=== PATIENT | female | born 1950 ===

== ENCOUNTER 2018-07-26 15:00 | Inpatient (IN) | payer MEDICARE ==
--- NOTE | 2018-07-17 17:00 | HP ---
HISTORY AND PHYSICAL: DATE OF ADMISSION/SURGERY: 07/26/18 DATE OF OFFICE VISIT: 07/13/18 SURGEON: Nina Wu MD* (dictated by CHERI Albert). PROCEDURE: Right total hip arthroplasty. CHIEF COMPLAINT: Right hip pain. HISTORY OF PRESENT ILLNESS: Ms. Singh is a 68-year-old female with continued complaints of right hip pain. She has failed conservative treatment and elected to proceed with a right total hip arthroplasty. PAST MEDICAL HISTORY: Thyroid disease, hypertension, and high cholesterol. PAST SURGICAL HISTORY: ERCP, cataract removal, and tonsillectomy. CURRENT MEDICATIONS: 1. Aspirin 81 mg a day. 2. L-thyroxine 25 mcg a day. 3. Losartan potassium 100 mg a day. 4. Tramadol 50 mg as needed. 5. Wellbutrin 100 mg a day. ALLERGIES: No known drug allergies. FAMILY HISTORY: Coronary artery disease, diabetes, cancer, and stroke. SOCIAL HISTORY: She is a 68-year-old female. She lives with her . She does not smoke, use drugs or alcohol. REVIEW OF SYSTEMS: A complete 14-point review of systems was reviewed with the patient. It was positive for thyroid disease. She denies history of DVT, PE, hepatitis, HIV, or anesthesia problems. PHYSICAL EXAMINATION GENERAL: She is well developed, well nourished, in no acute distress. VITAL SIGNS: She stands 63 inches tall, weighs 252 pounds. Her blood pressure is 150/90, her heart rate is 86. HEENT: Normocephalic, atraumatic. NECK: Supple. No palpable lymph nodes. PULMONARY: The lungs are clear to auscultation bilaterally. CARDIO: Regular rate and rhythm. Strong S1, S2. ABDOMEN: Soft, nontender, nondistended. NEUROLOGICAL: She is alert and oriented x3. MUSCULOSKELETAL: Right lower extremity: The skin is intact. There are no open wounds or abrasions. She has decreased range of motion of the right hip. She walks with an antalgic-type gait. She is able to dorsiflex and plantarflex and has a 2+ dorsalis pedis pulse. ASSESSMENT AND PLAN: Ms. Singh is a 68-year-old female with endstage osteoarthritis of the right hip. She has failed conservative treatment and elected to proceed with a right total hip arthroplasty. The surgery is scheduled for 07/26/[address] Wu discussed the risks and benefits of the surgery at today's visit and all of her questions were answered. She will follow up with Dr. Wu 2 weeks after the surgery. CHERI ALBERT [id number]/[facility] #: [id number] SHAYNA
[2018-12-05] MEDS ORDERED: Buffered Lidocaine 1% SYRIN* 1 ML/SYRINGE INTRADERM ONE (12:47)
[2018-12-06] MEDS ORDERED: Tranexamic Acid 1,000 MG in NS 0.9% 50 ML* (outpatient use) IV SCH ×2
[2018-12-06] MEDS ORDERED: Lactated Ringers 1000 ML Bag* 1,000 ML IV SCH (06:00)
[2018-12-06] MEDS ORDERED: Ondansetron ODT TAB* 4 MG PO ONE (06:00)
[2018-12-06] MEDS ORDERED: Famotidine IV* 10 MG/ML 2 ML (20 mg) IV ONE (06:00)
[2018-12-06] MEDS ORDERED: celeCOXIB CAP* 200 MG PO ONE (06:00)
[2018-12-06] MEDS ORDERED: Gabapentin CAP(*) 300 MG PO ONE (06:00)
[2018-12-06] MEDS ORDERED: Acetaminophen TAB* 325 MG PO ONE (06:00)
[2018-12-06] MEDS ORDERED: HYDROmorphone INJ1* 1 MG/ML SYRINGE IV PRN (06:03)
[2018-12-06] MEDS ORDERED: fentaNYL* 50 MCG/ML 2 ML VIAL (100 MCG VIAL) IV PRN (06:03)
[2018-12-06] MEDS ORDERED: Scopolamine 1.5 mg* PATCH TRANSDERM PRN (06:03)
[2018-12-06] MEDS ORDERED: DiMENhydriNATE IV* 50 MG/ML VIAL IV PUSH PRN (06:03)
[2018-12-06] MEDS ORDERED: Naloxone* 0.4 MG/ML 1 ML VIAL IV PRN (06:03)
[2018-12-06] MEDS ORDERED: PROCHLORPERAZINE INJ 5 MG/ML 2 ML VIAL IV PRN (06:03)
--- OUTSIDE RECORDS SUMMARY | 2018-12-06 07:42 | XMS REPORT | Continuity of Care Document ---
:1950 External Reference #:[id number] Author Name Nina Wu M.D. 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 Onset: 2018 pelvic region and thigh Social History Type Date Description Comments Sex Unknown ETOH Use Denies alcohol use Tobacco Use Start: Unknown Patient has never smoked Recreational Drug Use Denies Drug Use Smoking Status Reviewed: 11/05/18 Patient has never smoked Exercise Type/Frequency Does not exercise Allergies, Adverse Reactions, Alerts Description No Known Drug Allergies Medications Active Medications SIG Qnty Indications Ordering Provider Date Bupropion Take 1 Tablet By Unknown Hydrochloride ER (SR) Mouth Two Times Daily 100mg Tablets ER 12HR Tramadol HCL Take One Tablet Unknown 50mg Tablets By Mouth Every 6 Hours as Needed For Hip Pain -- Maximum Daily Dose Of 4 Per Day Losartan Potassium Take 1 Tablet By Unknown 100mg Mouth Every Day Tablets Levothyroxine Sodium 1 by mouth every 30tabs Unknown day 25mcg Tablets Aspirin 81 Low Dose 1 by mouth every Unknown 81mg day Chewtabs Timolol Maleate 1 drop left eye Unknown Ophthalmic Gel Forming every morning 0.5% GFS Pravastatin Sodium 1 by mouth every Unknown 20mg day Tablets Metoprolol Tartrate 1 by mouth day Unknown 25mg Tablets Docusate Sodium 1 tablet po Unknown 100mg twice daily Tablets Multivitamin Women 1 by mouth every Unknown day Tablets Immunizations Description No Information Available Vital Signs Date Vital Result Comment 11/05/2018 9:03am Height 63.5 inches 5'3.50" Weight 238.00 lb Heart Rate 83 /min BP Systolic 132 mmHg BP Diastolic 82 mmHg Respiratory Rate 16 /min Body Temperature 98.2 F Pain Level 6 BMI (Body Mass Index) 41.5 kg/m2 10/24/2018 1:42pm Height 63.5 inches 5'3.50" Weight 232.00 lb Heart Rate 74 /min BP Systolic 124 mmHg Lue reg cuff BP Diastolic 98 mmHg Lue reg cuff BP Systolic Sitting 126 mmHg Rue reg cuff BP Diastolic Sitting 98 mmHg Rue reg cuff BP Systolic Standing 126 mmHg Lue large cuff BP Diastolic Standing 98 mmHg Lue large cuff Respiratory Rate 12 /min BMI (Body Mass Index) 40.4 kg/m2 Results Test Date Facility Test Result H/L Range Note CBC Auto 07/18/2018 [facility] White Blood 5.9 10^3/uL Normal 3.5-10.[address] [place] [address] [phone] Red Blood Count 4.57 10^6/uL Normal 3.70-4.87 Hemoglobin 13.0 g/dL Normal 12.0-16.0 Hematocrit 38 % Normal 35-47 Mean Corpuscular Volume 84 fL Normal 80-97 Mean Corpuscular Hemoglobin 28 pg Normal 27-31 Mean Corpuscular HGB Conc 34 g/dL Normal 31-36 Red Cell Distribution Width 14 % Normal 10.5-15 Platelet Count 219 10^3/uL Normal 150-450 Mean Platelet Volume 9.0 fL Normal 7.4-10.4 Abs Neutrophils 3.0 10^3/uL Normal 1.5-7.7 Abs Lymphocytes 2.2 10^3/uL Normal 1.0-4.8 Abs Monocytes 0.4 10^3/uL Normal 0-0.8 Abs Eosinophils 0.3 10^3/uL Normal 0-0.6 Abs Basophils 0.1 10^3/uL Normal 0-0.2 Abs Nucleated RBC 0.0 10^3/uL Granulocyte % 50.3 % Lymphocyte % 37.6 % Monocyte % 6.9 % Eosinophil % 4.3 % Basophil % 0.9 % Nucleated Red Blood Cells % 0.1 Urinalysis Profile 07/18/2018 [facility] Urine Color Yellow [address] [place] [address] [phone] Urine Appearance Cloudy Urine Specific [place] 1.013 Normal 1.010-1.030 Urine pH 6.0 Normal 5-9 Urine Urobilinogen Negative Negative Urine Ketones Negative Negative Urine Protein Negative Negative Urine Leukocytes 3+ Abnormal Negative Urine Blood 1+ Abnormal Negative Urine Nitrite Negative Negative Urine Bilirubin Negative Negative Urine Glucose Negative Negative Urine White Blood Cell Trace(0-5/hpf) Absent Urine Red Blood Cell Trace(0-2/hpf) Absent Urine Bacteria Absent Absent Urine Squamous Epithelial Cell Present Abnormal Absent Inr/Protime 07/18/2018 [facility] Inr 1.00 Normal 0.82-1.[address] [place] [address] [phone] Laboratory test 07/18/2018 [facility] Partial 29.6 Normal 26.0 -38.[address] [place] [address] [place] [address] Time PTT [phone] Comp Metabolic 07/18/2018 [facility] Sodium 141 mmol/L Normal 135-[address] [place] [address] [phone] Potassium 4.5 mmol/L Normal 3.5-5.0 Chloride 104 mmol/L Normal 101-111 Co2 Carbon Dioxide 29 mmol/L Normal 22-32 Anion Gap 8 mmol/L Normal 2-11 Glucose 99 mg/dL Normal 70-100 Blood Urea Nitrogen 15 mg/dL Normal 6-24 Creatinine 0.91 mg/dL Normal 0.51-0.95 BUN/Creatinine Ratio 16.5 Normal 8-20 Calcium 9.9 mg/dL Normal 8.6-10.3 Total Protein 7.2 g/dL Normal 6.4-8.9 Albumin 4.4 g/dL Normal 3.2-5.2 Globulin 2.8 g/dL Normal 2-4 Albumin/Globulin Ratio 1.6 Normal 1-3 Total Bilirubin 0.70 mg/dL Normal 0.2-1.0 Alkaline Phosphatase 80 U/L Normal 34-104 Alt 12 U/L Normal 7-52 Ast 16 U/L Normal 13-39 Egfr Non- 61.9 >60 Egfr 74.8 >60 2 Type & Screen 07/18/2018 [facility] Patient Blood Type A Positive [address] [place] [address] [phone] Antibody Screen NEGATIVE Urine Culture And 07/18/2018 [facility] Urine Culture SEE RESULT [address] [place] [address] [phone] 1 Standard intensity warfarin therapeutic range: 2.0-3.0 High intensity warfarin therapeutic range: 2.5-3.5 2 Because ethnic data is not always readily available, this report includes an eGFR for both -Americans and non- Americans. The National Kidney Disease Education Program (NKDEP) does not endorse the use of the MDRD equation for patients that are not between the ages of 18 and 70, are , have extremes of body size, muscle mass, or nutritional status, or are non- or non-. According to the National Kidney Foundation, irrespective of diagnosis, the stage of the disease is based on the level of kidney function: Stage Description GFR(mL/min/1.73 m(2)) 1 Kidney damage with normal or decreased GFR 90 2 Kidney damage with mild decrease in GFR 60-89 3 Moderate decrease in GFR 30-59 4 Severe decrease in GFR 15-29 5 Kidney failure <15 (or dialysis) 3 SEE RESULT BELOW Name: TOYA GRANT : [address]: Nina Wu MD Acct: [id number] Unit: [id number] AGE: 68 Location: [facility] Re07/18/18 SEX: F Status: REG REF SPEC: [id number] DAPHNEY: 07/18/18-[address] [facility] [address]: Nina Wu MD REQ: [id number] RECD: 07/18/18 STATUS: COMP _ SOURCE: URINE SPDESC: ORDERED: Urine Culture QUERIES: Urine Source: Clean Catch Procedure Result Reported Site Urine Culture Final 07/19/18- 1207 ML No growth of clinically significant organisms * ML - Main Lab . END OF REPORT DEPARTMENT OF PATHOLOGY, [address] [place] [address] Jose Huntley M.D. Director [facility] # [id number] Procedures Date Code Description Status 10/24/2018 26231 EKG Tracing & Interpretation Completed 07/18/2018 61750 EKG, Interpretation Only Completed Medical Devices Description No Information Available Encounters Type Date Location Provider Dx Diagnosis Office Visit 07/13/2018 [facility] Nina Wu, M25.551 Pain in right hip 8:00[facility] M16.11 Unilateral primary osteoarthritis, right hip Assessments Date Code Description Provider 11/05/2018 M25.551 Pain in right hip Nina Wu M.D. 11/05/2018 M16.31 Unilateral osteoarthritis resulting from Nina Wu M.D. hip dysplasia, right hip 11/05/2018 E66.01 Morbid (severe) obesity due to excess Nina Wu M.D. calories 10/24/2018 I35.0 Aortic valve disorder Owen Britton M.D. 10/24/2018 Z95.2 Heart valve replacement Owen Britton M.D. 10/24/2018 I71.9 Aortic aneurysm Owen Britton M.D. 07/18/2018 R94.31 Abnormal electrocardiogram [ECG] [EKG] Nikunj Ma M.D. 07/13/2018 M25.551 Pain in right hip Nina Wu M.D. 07/13/2018 M16.11 Unilateral primary osteoarthritis, right Nina Wu M.D. hip Plan of Treatment Future Appointment(s):11/23/2018 9:00 am - Nina [facility] M[facility] at [facility]/23/2019 9:15 am - Owen Britton M.D. at [facility]11/07/2018 11:00 am - Traveling ECHO 1 at [facility]11/05/2018 - Nina Wu M.D.M25.551 Pain in right hipFollow up:Follow up: 7-10 days before ziwqqixR09.31 Unilateral osteoarthritis resulting from hip dysplasia, right hipE66.01 Morbid (severe) obesity due to excess calories Functional Status Description No Information Available Mental Status Description No Information Available Referrals Description No Information Available
--- OUTSIDE RECORDS SUMMARY | 2018-12-06 07:42 | XMS REPORT | Continuity of Care Document ---
:1950 External Reference #:[id number] Author Name Owen Britton M.D. (transmitted by agent of provider Ophelia Paz) Address [address] [place] [address] Care Team Providers Name Role Phone Gibson Hamilton MD - Family Medicine Care Team Information Fruit Thinner Problems Description No Information Available Social History Type Date Description Comments Sex Unknown ETOH Use Denies alcohol use Tobacco Use Start: Unknown Patient has never smoked Recreational Drug Use Denies Drug Use Smoking Status Reviewed: 10/24/18 Patient has never smoked Exercise Type/Frequency Does [...] Available Vital Signs Date Vital Result Comment 10/24/2018 1:42pm Height 63.5 inches 5'3.50" Weight [...] /min BMI (Body Mass Index) 40.4 kg/m2 07/13/2018 8:36am Height 63.5 inches 5'3.50" Weight 252.00 lb BP Systolic 150 mmHg BP Diastolic 90 mmHg Body Temperature 98.3 F BMI (Body Mass Index) 43.9 kg/m2 Results Test Date Facility Test Result H/L Range Note CBC Auto 07/18/2018 [facility] White Blood 5.9 10^3/uL Normal 3.5-10.[address] [place] [address] [phone] Red Blood Count 4.57 10^6/uL Normal 3.70-4.87 [...] Blood Cells % 0.1 Urinalysis Profile 07/18/2018 [facility] Urine Color Yellow [address] [place] [address] [phone] Urine Appearance Cloudy Urine Specific [place] 1.013 Normal 1.010-1.030 Urine pH 6.0 Normal [...] Epithelial Cell Present Abnormal Absent Inr/Protime 07/18/2018 [facility] Inr 1.00 Normal 0.82-1.[address] [place] [address] [phone] Laboratory test 07/18/2018 [facility] Partial 29.6 Normal 26.0 -38.[address] [address] Time PTT [phone] Comp Metabolic 07/18/2018 [facility] Sodium 141 mmol/L Normal 135-[address] [place] [address] [phone] Potassium 4.5 mmol/L Normal 3.5-5.0 Chloride 104 [...] 74.8 >60 2 Type & Screen 07/18/2018 [facility] Patient Blood Type A Positive [address] [place] [address] [phone] Antibody Screen NEGATIVE Urine Culture And 07/18/2018 [facility] Urine Culture SEE RESULT [address] [place] [address] [phone] 1 Standard intensity warfarin therapeutic range: 2.0-3.0 [...] [address]: Nina Wu MD Acct: [id number] Unit: [id number] AGE: 68 Location: [facility] Re07/18/18 SEX: F Status: REG REF SPEC: [id number] DAPHNEY: 07/18/18-[address] [facility] DR: Nina Wu MD REQ: [id number] RECD: 07/18/18 STATUS: COMP _ SOURCE: URINE SPDESC: ORDERED: Urine Culture QUERIES: Urine Source: Clean Catch Procedure Result Reported Site Urine Culture Final 07/19/18- 1207 ML No growth of clinically significant organisms * ML - Main Lab . END OF REPORT DEPARTMENT OF PATHOLOGY, [address] [place] [address] Jose Huntley M.D. Director [facility] # [id number] Procedures Date Code Description Status 10/24/2018 97243 EKG Tracing & Interpretation Completed 07/18/2018 29954 EKG, Interpretation Only Completed Medical Devices Description No Information Available Encounters Type Date Location Provider Dx Diagnosis Office Visit 07/13/2018 [facility] Nina Wu, M25.551 Pain in right hip 8:00a [facility] M16.11 Unilateral primary osteoarthritis, right hip Assessments Date Code Description Provider 10/24/2018 I35.0 Aortic valve disorder Owen Britton M.D. 10/24/2018 Z95.2 Heart valve replacement Owen Britton M.D. 10/24/2018 I71.9 Aortic aneurysm Owen Britton M.D. 07/18/2018 R94.31 Abnormal electrocardiogram [ECG] [EKG] Nikunj Ma M.D. 07/13/2018 M25.551 Pain in right hip Nina Wu M.D. 07/13/2018 M16.11 Unilateral primary osteoarthritis, right Nina Wu M.D. hip Plan of Treatment Future Appointment(s):01/23/2019 9:15 am - Owen Britton M.D. at [facility]11/07/2018 11:00 am - Traveling ECHO 1 at [facility]10/24/2018 - Owen Britton M.D.I35.0 Aortic valve disorderNew Orders: Echocardiogram, Ordered: 10/24/18Follow up:3 xracnuQ88.2 Heart valve zqkzhvdlgmvJ25.9 Aortic aneurysm Functional Status Description No Information Available Mental Status Description No Information Available Referrals Description No Information Available
--- OUTSIDE RECORDS SUMMARY | 2018-12-06 07:42 | XMS REPORT | Continuity of Care Document ---
:1950 External Reference #:[id number] Author Name Nina Wu M.D. 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 Onset: 2018 pelvic region and thigh Social History Type Date Description Comments Sex Unknown ETOH Use Denies alcohol use Tobacco Use Start: Unknown Patient has never smoked Recreational Drug Use Denies Drug Use Smoking Status Reviewed: 11/23/18 Patient has never smoked Exercise Type/Frequency Does [...] Maximum Daily Dose Of 4 Per Day Levothyroxine Sodium 1 by mouth every 30tabs Unknown day 25mcg Tablets Aspirin 81 Low Dose 1 by mouth every Unknown 81mg day Chewtabs Timolol Maleate 1 drop left eye Unknown Ophthalmic Gel Forming every morning 0.5% GFS Pravastatin Sodium 1 by mouth every Unknown 20mg day Tablets Metoprolol Tartrate 1 by mouth day Unknown 25mg Tablets Multivitamin Women 1 by mouth every Unknown day Tablets Immunizations Description No Information Available Vital Signs Date Vital Result Comment 11/23/2018 8:47am Height 63.5 inches 5'3.50" Weight 238.00 lb Heart Rate 78 /min BP Systolic 124 mmHg BP Diastolic 80 mmHg Respiratory Rate 16 /min Body Temperature 97.6 F Pain Level 6 BMI (Body Mass Index) 41.5 kg/m2 11/05/2018 9:03am Height 63.5 inches 5'3.50" Weight 238.00 lb Heart Rate 83 /min BP Systolic 132 mmHg BP Diastolic 82 mmHg Respiratory Rate 16 /min Body Temperature 98.2 F Pain Level 6 BMI (Body Mass Index) 41.5 kg/m2 Results Test Date Facility Test Result H/L Range Note CBC Auto 07/18/2018 [facility] White Blood 5.9 10^3/uL Normal 3.5-10.[address] [place] [address] [phone] Red Blood Count 4.57 10^6/uL Normal 3.70-4.87 [...] Blood Cells % 0.1 Urinalysis Profile 07/18/2018 [facility] Urine Color Yellow [address] [place] [address] [phone] Urine Appearance Cloudy Urine Specific [place] 1.013 Normal 1.010-1.030 Urine pH 6.0 Normal [...] Epithelial Cell Present Abnormal Absent Inr/Protime 07/18/2018 [facility] Inr 1.00 Normal 0.82-1.[address] [place] [address] [phone] Laboratory test 07/18/2018 [facility] Partial 29.6 Normal 26.0 -38.[address] [address] Time PTT [phone] Comp Metabolic 07/18/2018 [facility] Sodium 141 mmol/L Normal 135-[address] [place] [address] [phone] Potassium 4.5 mmol/L Normal 3.5-5.0 Chloride 104 [...] 74.8 >60 2 Type & Screen 07/18/2018 [facility] Patient Blood Type A Positive [address] [place] [address] [phone] Antibody Screen NEGATIVE Urine Culture And 07/18/2018 [facility] Urine Culture SEE RESULT [address] [place] [address] [phone] 1 Standard intensity warfarin therapeutic range: 2.0-3.0 [...] (or dialysis) 3 SEE RESULT BELOW Name: RUDYTOYA J : [address]: Nian Wu MD Acct: [id number] Unit: [id number] AGE: 68 Location: [facility] Re07/18/18 SEX: F Status: REG REF SPEC: [id number] DAPHNEY: 07/18/18-1522 [facility] DR: Nina Wu MD REQ: [id number] RECD: 07/18/183765 STATUS: COMP _ SOURCE: URINE SPDESC: ORDERED: Urine Culture QUERIES: Urine Source: Clean Catch Procedure Result Reported Site Urine Culture Final 07/19/18- 1207 ML No growth of clinically significant organisms * ML - Main Lab . END OF REPORT DEPARTMENT OF PATHOLOGY, [address] [place] [address] Jose Huntley M.D. Director [facility] # [id number] Procedures Date Code Description Status 11/07/2018 07743 ECHO Transthoracic, Real-Time 2D With Doppler And Color Completed Flow 11/07/2018 52838 ECHO Transthoracic, Real-Time 2D With Doppler And Color Completed Flow 10/24/2018 38488 EKG Tracing & Interpretation Completed 07/18/2018 32526 EKG, Interpretation Only Completed Medical Devices Description No Information Available Encounters Type Date Location Provider Dx Diagnosis Office Visit 11/05/2018 [facility] Nina Wu, M25.551 Pain in right hip 9:00a at [place] M.D. M16.31 Unilateral osteoarth resulting from hip dysplasia, right hip E66.01 Morbid (severe) obesity due to excess calories Z68.41 Body mass index (BMI) 40.0-44.9, adult Office Visit 10/24/2018 2:00p [facility] Owen Fortune I35.0 Nonrheumatic Of Maggie Britton M.D. aortic (valve) stenosis Z95.2 Presence of prosthetic heart valve I71.9 Aortic aneurysm of unspecified site, without rupture Office Visit 07/13/2018 8:00a [facility] Nina Wu, M25.551 Pain in right at [place] M.D. hip M16.11 Unilateral primary osteoarthritis, right hip Assessments Date Code Description Provider 11/23/2018 M25.551 Pain in right hip Nina Wu M.D. 11/23/2018 M16.11 Unilateral primary osteoarthritis, right Nina Wu M.D. hip 11/07/2018 I35.0 Nonrheumatic aortic (valve) stenosis Traveling ECHO 1 11/07/2018 Z95.2 Presence of prosthetic heart valve Owen Britton M.D. 11/07/2018 Z95.2 Presence of prosthetic heart valve Traveling ECHO 1 11/05/2018 M25.551 Pain in right hip Nina Wu M.D. 11/05/2018 M16.31 Unilateral osteoarthritis resulting from Nina Wu M.D. hip dysplasia, right hip 11/05/2018 E66.01 Morbid (severe) obesity due to excess Nina Wu M.D. calories 11/05/2018 Z68.41 Body mass index (BMI) 40.0-44.9, adult Nina Wu M.D. 10/24/2018 I35.0 Aortic valve disorder Owen Britton M.D. 10/24/2018 Z95.2 Heart valve replacement Owen Britton M.D. 10/24/2018 I71.9 Aortic aneurysm Owen Britton M.D. 07/18/2018 R94.31 Abnormal electrocardiogram [ECG] [EKG] Agustin DelgadoD. 07/13/2018 M25.551 Pain in right hip Nina Wu M.D. 07/13/2018 M16.11 Unilateral primary osteoarthritis, right Nina Wu M.D. hip Plan of Treatment Future Appointment(s):12/17/2018 8:45 am - Nina Wu M.D. at [facility] at [place]12/06/2018 1:30 pm - Hakeem Willett PA-C at [facility] at [place]8512/06/2018 1:30 pm - CHERI Fox at [facility] at [place]0812/06/2018 1:30 pm - Nina Wu M.D. at [facility] at [place]9201/23/2019 9:15 am - Owen Britton M.D. at [facility]11/23/2018 - Nina Wu M.D.M25.551 Pain in right hipNew Xrays:Hip Right 2 Views And Pelvis [address] - [address], Ordered: 11/23/18M16.11 Unilateral primary osteoarthritis, right hipFollow up:Follow up: To the OR Functional Status Description No Information Available Mental Status Description No Information Available Referrals Description No Information Available
--- OUTSIDE RECORDS SUMMARY | 2018-12-06 07:42 | XMS REPORT | Continuity of Care Document ---
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 Active Problems Provider Date Localized, secondary [...] Result H/L Range Note CBC Auto 07/18/2018 [facility] White Blood 5.9 10^3/uL Normal 3.5-10.[address] [place] [address] [phone] Red Blood Count 4.57 10^6/uL Normal 3.70-4.87 [...] Blood Cells % 0.1 Urinalysis Profile 07/18/2018 [facility] Urine Color Yellow [address] [place] [address] [phone] Urine Appearance Cloudy Urine Specific [place] 1.013 Normal 1.010-1.030 Urine pH 6.0 Normal [...] Epithelial Cell Present Abnormal Absent Inr/Protime 07/18/2018 [facility] Inr 1.00 Normal 0.82-1.[address] [place] [address] [phone] Laboratory test 07/18/2018 [facility] Partial 29.6 Normal 26.0 -38.[address] [place] [address] [place] [address] Time PTT [phone] Comp Metabolic 07/18/2018 [facility] Sodium 141 mmol/L Normal 135-[address] [place] [address] [phone] Potassium 4.5 mmol/L Normal 3.5-5.0 Chloride 104 [...] 74.8 >60 2 Type & Screen 07/18/2018 [facility] Patient Blood Type A Positive [facility] [place] [address] [phone] Antibody Screen NEGATIVE Urine Culture And 07/18/2018 [facility] Urine Culture SEE RESULT [address] [place] [address] [phone] Standard intensity warfarin therapeutic range: 2.0-3.0 [...] [address]: Nina Wu MD Acct: [id number] Unit: [id number] AGE: 68 Location: [facility] Re07/18/18 SEX: F Status: REG REF SPEC: [id number] DAPHNEY: 07/18/18-[address] [facility] [address]: Nina Wu MD REQ: [id number] RECD: 07/18/18 STATUS: COMP _ SOURCE: URINE SPDESC: ORDERED: Urine Culture QUERIES: Urine Source: Clean Catch Procedure Result Reported Site Urine Culture Final 07/19/18- 1207 ML No growth of clinically significant organisms * ML - Main Lab . END OF REPORT DEPARTMENT OF PATHOLOGY, [address] [place] [address] Jose Huntley M.D. Director [facility] # [id number] Procedures Date Code Description Status 11/07/2018 50645 ECHO Transthoracic, Real-Time 2D With Doppler And Color Completed Flow 11/07/2018 67837 ECHO Transthoracic, Real-Time 2D With Doppler And Color Completed Flow 10/24/2018 04673 EKG Tracing & Interpretation Completed 07/18/2018 86941 EKG, Interpretation Only Completed Medical Devices Description No Information Available Encounters Type Date Location Provider Dx Diagnosis Office Visit 10/24/2018 [facility] Owen Fortune I35.0 Nonrheumatic aortic 2:00p Of Maggie Britton M.D. (valve) stenosis Z95.2 Presence of prosthetic heart valve I71.9 Aortic aneurysm of unspecified site, without rupture Office Visit 07/13/2018 8:[facility]a [facility] Nina Wu, M25.551 Pain in right Of C.MDouglas Suarez hip M16.11 Unilateral primary osteoarthritis, right hip Assessments Date Code Description Provider 11/07/2018 I35.0 Nonrheumatic aortic (valve) stenosis Traveling [...] Wu M.D. hip Plan of Treatment Future Appointment(s):12/06/2018 1:30 pm - Nina Wu M.D. at [facility]11/23/2018 9:00 am - Nina Wu M.D. at [facility]01/23/2019 9:15 am - Owen Britton M.D. at [facility]11/05/2018 - Nina Wu M.D.M25.551 Pain in right hipFollow up:Follow up: 7-10 days before puzzxbrV14.31 Unilateral osteoarthritis resulting from hip dysplasia, right hipE66.01 Morbid (severe) obesity due to excess calories Functional Status Description No Information Available Mental Status Description No Information Available Referrals Description No Information Available
[2018-12-06] MEDS ORDERED: Gabapentin CAP(*) 300 MG ONE (08:11)
[2018-12-06] MEDS ORDERED: Acetaminophen TAB* 325 MG ONE ×2 (08:11→08:26)
[2018-12-06] MEDS ORDERED: Ondansetron ODT TAB* 4 MG ONE (08:11)
[2018-12-06] MEDS ORDERED: Dexamethasone TAB* 4 MG ONE (08:11)
[2018-12-06] MEDS ORDERED: ceFAZolin 2 GM PREMIX in ORs 2 GM/50 ML BAG ONE (08:12)
[2018-12-06] MEDS ORDERED: Famotidine IV* 10 MG/ML 2 ML (20 mg) ONE (08:12)
[2018-12-06] MEDS ORDERED: celeCOXIB CAP* 200 MG ONE (08:12)
[2018-12-06] MEDS: Dexamethasone TAB* 4 MG PO ONE ×2 (08:27→08:28)
[2018-12-06] MEDS ORDERED: Midazolam* 1 MG/ML 5 ML VIAL (5 MG) ONE (09:24)
[2018-12-06] MEDS ORDERED: KETAMINE HCL* 50 MG/ML 10 ML VIAL ONE (09:24)
[2018-12-06] MEDS ORDERED: fentaNYL* 50 MCG/ML 2 ML VIAL (100 MCG VIAL) ONE (09:24)
[2018-12-06] MEDS ORDERED: Rocuronium* 10 MG/ML VIAL ONE (10:37)
[2018-12-06] MEDS ORDERED: ROPIVACAINE 5 MG/ML 30 ML BTL (0.5%) ONE (10:41)
[2018-12-06] MEDS ORDERED: HYDROmorphone INJ1* 1 MG/ML SYRINGE ONE (11:30)
[2018-12-06] MEDS ORDERED: Lidocaine 2% PF * 5 ML VIAL ONE (13:14)
[2018-12-06] MEDS ORDERED: EPHEDrine (Pressors)* 50 MG/ML VIAL ONE (13:14)
[2018-12-06] MEDS ORDERED: Glycopyrrolate IV* 0.2 MG/ML 1 ML VIAL ONE (13:14)
[2018-12-06] MEDS ORDERED: Propofol* 10 MG/ML 20 ML BTL ONE (13:14)
[2018-12-06] MEDS ORDERED: Acetaminophen TAB* 325 MG PO PRN (14:03)
[2018-12-06] MEDS ORDERED: diPHENhydraMINE PO* 25 MG PO PRN (14:03)
[2018-12-06] MEDS ORDERED: Magnesium Hydroxide LIQ* 30 ML UDC PO PRN (14:03)
[2018-12-06] MEDS ORDERED: oxyCODONE/Acetamin 5/325 MG* TAB PO PRN (14:03)
[2018-12-06] MEDS ORDERED: Morphine INJ* 2 MG/ML 1 ML SYRINGE (TWO MG - NEW SYRINGE VERSION) IV PRN (14:03)
[2018-12-06] MEDS ORDERED: Ondansetron INJ* 2 MG/ML VIAL IV PRN (14:03)
[2018-12-06] MEDS ORDERED: Ondansetron ODT TAB* 4 MG PO PRN (14:03)
[2018-12-06] MEDS ORDERED: diPHENhydraMINE IV* 50 MG/ML 1 ml VIAL (BENADRYL) IV PRN (14:03)
[2018-12-06] MEDS ORDERED: Cyclobenzaprine TAB* 10 MG PO PRN (14:03)
--- NOTE | 2018-12-06 15:25 | OP ---
Operative Report - Blank - Operative Report Date of Operation: 12/06/18 Note: CAMDEN GRANT 1950 Date Of Surgery: 12/06/18 Nina Wu MD Finishing Lab Technician: Hailey ALONZO did help throughout the procedure with preparation of the hip, wound retraction, manipulation of the hip, and wound closure. Anesthesiologist: Devika Alvarado MD Anesthesia Type: General Preoperative Diagnosis: Right severe degenerative osteoarthritis of the hip Postoperative Diagnosis: As above Procedure Performed: Right Total Hip Arthroplasty with modifier for increased operative time due to morbid obesity Complications: None Specimen: Femoral head and acetabular reamings sent to pathology. Hardware used: This is uncemented Luciana total hip arthroplasty hardware for the femur a size 6 accolade II with 127 neck angle femoral component, for the acetabulum a size 50 D trident II tritanium cluster hole shell, 2 screws length 15mm and 20mm, for the insert a size 36D trident X3 polyethylene insert, and for the femoral head a size 36 - 2.5 ceramic biolox V40 femoral head. Brief history/Indication: CAMDEN GRANT was known in clinic and had a history of severe right hip pain. She failed conservative treatment with anti- inflammatories, pain pills, intra-articular injections and physical therapy. She elected to undergo right total hip arthroplasty due to continued pain and decreased quality of life. Radiographs showed severe end stage osteoarthritis of the hip with bone on bone contact. Informed consent was obtained from the patient. She understood the risks of surgery included but were not limited to: bleeding, infection, damage to nearby structures, intraoperative fracture, nerve palsy, failure of the hardware, early loosening, stiffness or loss of motion, dislocation, leg length discrepancy, anesthesia complications, stroke, heart attack, blood clot and . She wished to proceed. Intra-Operative findings: Intraoperatively the patient was noted to have severe loss of cartilage of the acetabulum and femoral head. She had significant loss of bone on the superior acetabulum and posterior wall was quite thin. This case did have at least 45 minutes of added operative time due to the patient's morbid obesity. Positioning, exposure, implant placement and closure were all made more complex and took added operative time. Description of the Procedure: CAMDEN GRANT was identified in the preanesthesia unit. Her right hip was marked as the correct operative side. Informed consent was signed and placed in the chart. The patient was taken to the operating room and placed under anesthesia without complication. A sloan catheter was placed. The patient was placed on the peg board with all bony prominences well padded. The right lower extremity was prepped and draped in the usual sterile fashion. Preoperative time -out was made to correctly identify the patient, side and site. Appropriate intraoperative antibiotics were given within one hour of incision. A standard posterior incision was made and carried sharply down to the lateral fascia. A new 10 blade was used to make an incision in the fascia in line with the skin incision. A charnley retractor was placed. The piriformis and conjoined tendons were identified and elevated off the posterolateral femur using electrocautery. These were tagged with number 5 Ethibond. Next electrocautery was used to make a posterolateral capsular flap and this was tagged with number 5 Ethibonds. The hip was carefully dislocated. Lesser trochanter to the center of the femoral head was measured at 60 mm. The oscillating saw was used to make the femoral neck cut. The femoral head was carefully removed. The femur was retracted anteriorly and the acetabular retractors were placed. Long-handled knife was used to sharply remove any remaining labrum from the acetabular rim. The acetabulum was sequentially reamed up to a size 50. A bleeding subchondral bone bed was obtained. A trial liner was placed and had excellent fit and stability. A 50D cup with 2 screws was placed and had excellent stability with appropriate anteversion and abduction angle. A size 36D polyethylene liner was impacted into the acetabular shell. The liner was checked for stability and was stable. Next attention was turned to preparation of the femoral canal. A canal finder was used to enter the proximal femur. The femoral canal was sequentially broached up to a size 6 femoral broach trial. A trial neck and 36 - 2.5 trial femoral head was chosen. Lesser trochanter to center of the femoral head measurement was satisfactory. The hip was reduced and taken through a range of motion. The hip was stable in all positions with good soft tissue tension and appropriate leg lengths. The hip was dislocated and all trials were removed. The final implant chosen was a accolade II size 6. This stem was impacted into the femoral canal without difficulty. The stem was stable with appropriate anteversion. The femoral head chosen was a 36 - 2.5 ceramic biolox head. The head was impacted onto the femoral neck without difficulty. The final lesser trochanter to center of the femoral head measurement was satisfactory. The hip was reduced and taken through a range of motion. The hip was stable in all positions with good soft tissue tension and appropriate leg lengths. The hip was copiously irrigated with sterile saline. The previously tagged capsule and tendons were repaired to the posterolateral femur through two trochanteric drill holes. The lateral fascia layer was closed using number 1 vicryls. The rest of the incision was closed in a layered fashion using 0 and 2-0 vicryls. The skin was closed using 3-0 monocryl suture and Dermabond. Sterile adaptic, 4x4s and paper tape was used to cover the incision. The patients anesthesia was reversed without difficulty. She was taken to the PACU in stable condition. Intended weight-bearing will be as tolerated with posterior hip precautions.
--- NOTE | 2018-12-06 15:40 | PN ---
Progress Note - Progress Note Date of Service: 12/06/18 Note: resting in recovery without complaints of pain; able to dorsi flex/plantar flex , 2+ DP pulse, intact sensation; dressing c/d/i
[2018-12-06] MEDS: Lactated Ringers 1000 ML Bag* 1,000 ML IV SCH (15:59)
--- NOTE | 2018-12-06 17:22 | CONS ---
HOSPITAL MEDICINE CONSULTATION REPORT: DATE OF CONSULT: 12/06/18 PROVIDER: Ashwini Clark NP ATTENDING PHYSICIAN: Dr. Nina Wu. CONSULTING PHYSICIAN: Dr. Opal Romano (dictated by Ashwini Clark NP). REASON FOR CONSULT: Co-management of chronic medical conditions. HISTORY OF PRESENT ILLNESS: Ms. Singh is a 68-year-old female with a past medical history significant for hypertension, osteoarthritis, hypothyroid, depression, thoracic aortic aneurysm with repair on 08/11/18, aortic stenosis with aortic valve repair on 08/11/18, glaucoma, who presented to [facility] for an elective right total hip arthroplasty with Dr. Wu. Please see dictated H and P from CHERI Joaquin, for complete details. In brief, the patient had ongoing pain and failed conservative measures; therefore, opted for an elective right total hip replacement with Dr. Wu. In the immediate postoperative period, the patient has no complaints. Hospital Medicine was asked to help co- manage her care during her hospitalization due to her history of hypertension, hypothyroid, depression, aortic aneurysm. The patient denies any fever, chills , unintended weight loss. Denies any chest pain or edema. Denies any shortness of breath. Denies any cough, congestion, or hemoptysis. She does report she did have a mild sore throat yesterday. She denies any nausea, vomiting, diarrhea, abdominal pain, hematuria, or dysuria. Denies any weakness or sensory loss, visual complaints, dysphagia, arthralgias, myalgias, rashes, lesions, open sores, psychosis or anxiety. Due to her history, Hospital Medicine was asked to consult. PAST MEDICAL HISTORY: Significant for: 1. Hypertension. 2. Osteoarthritis. 3. Hypothyroid. 4. Depression. 5. Thoracic aortic aneurysm with repair on 08/11/[address] Doyle at [facility]. 6. Aortic stenosis with aortic valve repair by Dr. Doyle on 08/11/18. 7. Glaucoma. PAST SURGICAL HISTORY: Cholecystectomy, ERCP, tonsillectomy, cataracts, aortic valve replacement on 08/11/18, aortic aneurysm repair on 08/11/18. HOME MEDICATIONS: Include: 1. Bupropion HCl 100 mg p.o. b.i.d. 2. Tramadol 50 mg p.o. q.6 hours as needed for pain. 3. Levothyroxine 25 mcg p.o. daily. 4. Aspirin 81 mg p.o. daily. 5. Timolol 0.5% one drop. 6. Pravastatin 20 mg p.o. daily. 7. Metoprolol 25 mg p.o. daily. 8. Multivitamin 1 tab p.o. daily. 9. Colace 100 mg b.i.d. ALLERGIES: No known drug allergies. FAMILY HISTORY: Father with a history of enlarged heart. Mother with hypertension. Sister with stroke, diabetes. Father with a history of diabetes. No reported history of cancer within the family. SOCIAL HISTORY: The patient denies any smoking, alcohol, or illicit drug use. She has never smoked. She is . She lives with her . Surrogate decision maker in the event she is unable to make her own decisions is her daughter, Christi. She is a full code. REVIEW OF SYSTEMS: An 11-point review of systems was completed. All pertinent positives were mentioned in the HPI. Otherwise were negative. PHYSICAL EXAM: General: At this time, Ms. Singh is a 68-year-old female. She is alert and oriented, drowsy, resting on the bed in PACU. She is in no acute distress. She is well developed, well nourished. Vital Signs: Blood pressure 149/83, heart rate 63, respirations 14, O2 saturation 100%, temperature was 96.8. HEENT: Head is atraumatic, normocephalic. Eyes: EOMs are intact. Sclerae anicteric and not pale. Oral mucosa appeared to be dry. Neck is supple. Lungs are clear to auscultation bilaterally. No wheezes, rales , or rhonchi. Cardiac: S1, S2. Regular rate and rhythm. No rubs or gallops. Abdomen is soft and nontender. Bowel sounds are present x4. Extremities: She is able to move all 4 extremities. Sensation is intact to all 4 extremities. Pedal pulses are +2 bilaterally. There is no clubbing or cyanosis. Neurologic : She is awake, alert, oriented x3. Speech is clear. Thought process is intact. There are no gross focal deficits. Skin: She does have dressing that is dry and intact to her right hip. DIAGNOSTIC STUDIES/LAB DATA: She had an echocardiogram on 11/07/18. Left ventricular cavity size was normal. Mild concentric atrophy of the left ventricle. Low normal decreased global wall motion. Visual EF was 50% to 55%. Abnormal septal wall motion due to postoperative valve. Indeterminate diastolic filling pattern. Normal LAP. Status post aortic valve replacement, normal function. Bioprosthetic aortic valve with no regurgitation noted. Left ventricular regional wall motion findings: No wall motion abnormalities. No evidence of aortic stenosis. Mitral valve with trace regurg. Tricuspid valve with mild regurgitation. No evidence of pulmonary hypertension. Mildly dilated ascending aorta, status post ascending aorta repair graft. CBC from 11/16/18: WBCs 7.37, RBCs 4.65, hemoglobin 12.5, hematocrit was 39.4, platelet count 231. Sodium 141, potassium 4.9, chloride 100, carbon dioxide was 30, calcium 9.4, albumin 4.3, BUN was 18, creatinine 0.8, glucose 90. ASTs were 27, ALTs were 21, alkaline phosphatase was 91. IMPRESSION AND PLAN: Ms. Singh is a 68-year-old female with a past medical history significant for thoracic aortic aneurysm, status post repair on 08/11/18 ; aortic valve stenosis with repair on 08/11/18; hypertension; hypothyroid; depression; and osteoarthritis, who had an elective right total hip arthroplasty with Dr. Wu. Our recommendations are as follows: 1. Status post right total hip arthroplasty. PT/OT per Orthopedics. Bowel regimen per Orthopedics. Care management per Orthopedics. Pain medicines per Orthopedics. 2. Hypertension. I would continue her metoprolol with holding parameters for systolic blood pressure less than 110 and heart rate less than 50. I would resume her aspirin when able. 3. Hyperlipidemia. She should continue on pravastatin 20 mg p.o. daily. 4. Hypothyroid. She should continue on levothyroxine 25 mcg p.o. daily. 5. Depression. She should continue on bupropion 100 mg p.o. b.i.d. 6. Glaucoma. She should continue on timolol as previously prescribed. 7. FEN: She can have a heart-healthy, caffeine okay diet. 8. Code status: She is a full code. 9. DVT prophylaxis: As per Orthopedics. TIME SPENT: Time spent on this consultation was 45 minutes, greater than half that time was spent at the bedside reviewing events leading thus far to her hospitalization, performing physical exam, and reviewing my plan of care. I have discussed this with my attending, Dr. Opal Romano; she is in agreement with my plan. ASHWINI CLARK, CHIEF ESTIMATOR [id number]/[facility] #: [id number] SHYANA
[2018-12-06] MEDS: ceFAZolin 1 GM ADVAN(*) 1 GM in NS 0.9% 50 ML* 50 ML IVPB SCH (19:56)
[2018-12-06] MEDS: Docusate CAP* 100 MG PO SCH (20:04)
[2018-12-06] MEDS: Magnesium Hydroxide LIQ* 30 ML UDC PO SCH (20:04)
[2018-12-07] MEDS: Lactated Ringers 1000 ML Bag* 1,000 ML IV SCH (02:12)
[2018-12-07] MEDS: ceFAZolin 1 GM ADVAN(*) 1 GM in NS 0.9% 50 ML* 50 ML IVPB SCH ×2 (03:18→12:05)
[2018-12-07 07:39] LABS: Hematocrit 30 % (35-47); Hemoglobin 10.1 g/dL (12.0-16.0); Mean Platelet Volume 8.6 fL (7.4-10.4); Platelet Count 149 10^3/uL (150-450)
[2018-12-07 08:24] LABS: BUN/Creatinine Ratio 14.9 (8-20); Calcium 8.7 mg/dL (8.6-10.3); EGFR Non-African American 78.5 (>60); Potassium 4.2 mmol/L (3.5-5.0)
[2018-12-07] MEDS: oxyCODONE/Acetamin 5/325 MG* TAB PO PRN ×2 (08:41→19:46)
[2018-12-07] MEDS ORDERED: Pneumococcal *Vac Polyvalent 0.5 ML VIAL IM ONE (09:00)
[2018-12-07] MEDS ORDERED: Influenza VAC *QUAD* 2019-20* 0.5 ML SYRINGE IM ONE (09:00)
[2018-12-07] MEDS: Apixaban* 2.5 MG TAB PO SCH ×2 (09:55→21:20)
[2018-12-07] MEDS: Vitamin THERAPEUTIC TAB PO SCH (09:55)
[2018-12-07] MEDS: Docusate CAP* 100 MG PO SCH ×2 (09:55→21:20)
[2018-12-07] MEDS: Magnesium Hydroxide LIQ* 30 ML UDC PO SCH ×2 (09:58→21:23)
[2018-12-07] MEDS: Levothyroxine TAB* 25 MCG TAB PO SCH (10:36)
--- NOTE | 2018-12-07 10:54 | PN ---
Progress Note - Progress Note Date of Service: 12/07/18 SOAP: Subjective: [Pt was seen this am sitting in chair. She states that she feels very nervous about the posterior hip precautions. She is afraid that she is going to pop her hip out. She states that her pain is manageable and well controlled. She states that she was able to get up with PT and feels that she did well. She denies any chest pain, SOB, nausea, vomiting. ] Objective: [General: Pt is alert and oriented x 3. NAD. MSK, RLE: inspection of the right hip reveals dressing that is c/d/i. +df/pf. Calves soft and non tender. 2+ DP pulse. ] Vital Signs Temp 97.5 F 12/07/18 07:36 Pulse 59 12/07/18 07:36 Resp 18 12/07/18 08:48 BP 101/44 12/07/18 07:36 Pulse Ox 99 12/07/18 07:36 Intake & Output 12/06/18 12/07/18 12/07/18 18:59 06:59 18:59 Intake Total 3200 1885 Output Total 1550 830 Balance 1650 1055 Weight 237 lb 6.4 oz Intake: IV Fluids 3200 398 LR 3200 398 IVPB 1087 ABX - CEFAZOLIN 110 LR 977 Oral 400 Output: Frye 1200 830 Emesis 350 Assessment: [POD1 RTHA ] Plan: [Eliquis x30 days Percocet for pain relief Continue with PT The pt has expressed desire to go home today. We discussed that we would re- evaluate her after the second PT session and should she feel ready we will change her dressing at that point and send her home. Discussed posterior hip precautions with pt today. ]
[2018-12-07] MEDS: Latanoprost 0.005%* 2.5 ml BTL BOTH EYES SCH (12:05)
[2018-12-07] MEDS: buPROPion SR TAB.SR* 100 MG PO SCH ×2 (12:05→21:20)
[2018-12-07] MEDS: CMC: Pravastatin (NF) 20 MG TAB PO SCH (12:05)
[2018-12-07] MEDS: Timolol 0.5% OPTH.SOL* BTL BOTH EYES SCH (12:06)
[2018-12-07] MEDS: oxyCODONE TAB* 5 MG TAB PO PRN (12:59)
--- NOTE | 2018-12-07 16:09 | PN ---
Subjective Date of Service: 12/07/18 Interval History: HOSPITALIST PROGRESS NOTE Patient seen and examined at bedside. Care reviewed and d/w Yolanda Breaux RN. She feels well today, in good spirits. Pain is controlled. Family History: Unchanged from Admission Social History: Unchanged from Admission Past Medical History: Unchanged from Admission Objective Active Medications: Acetaminophen (Tylenol Tab*) 650 mg PO Q8HR PRN PRN Reason: MILD PAIN or TEMP > 100.4 Apixaban (Eliquis*) 2.5 mg PO BID ON LICENSE OF [facility] Last Admin: 12/07/18 09:55 Dose: 2.5 mg Bisacodyl (Dulcolax Supp*) 10 mg ME DAILY PRN PRN Reason: CONSTIPATION Bupropion HCl (Wellbutrin Sr Tab*) 100 mg PO BID WITH MEALS ON LICENSE OF [facility] Last Admin: 12/07/18 12:05 Dose: 100 mg Cyclobenzaprine HCl (Flexeril Tab*) 10 mg PO Q6H PRN PRN Reason: SPASMS Diphenhydramine HCl (Benadryl Iv*) 25 mg IV Q6H PRN PRN Reason: PRURITIS Diphenhydramine HCl (Benadryl Po*) 25 mg PO Q6H PRN PRN Reason: PRURITIS Docusate Sodium (Colace Cap*) 100 mg PO BID ON LICENSE OF [facility] Last Admin: 12/07/18 09:55 Dose: 100 mg Lactated Ringer's (Lactated Ringers 1000 Ml Bag*) 1,000 mls @ 100 mls/hr IV PER RATE ON LICENSE OF [facility] Last Admin: 12/07/18 02:12 Dose: 100 mls/hr Lactulose (Lactulose*) 30 ml PO BID PRN PRN Reason: CONSTIPATION Latanoprost (Xalatan 0.005%*) 1 drop BOTH EYES DAILY ON LICENSE OF [facility] Levothyroxine Sodium (Synthroid Tab*) 25 mcg PO DAILY@0600 ON LICENSE OF [facility] Last Admin: 12/07/18 10:36 Dose: 25 mcg Magnesium Hydroxide (Milk Of Magnesia Liq*) 30 ml PO BID ON LICENSE OF [facility] Last Admin: 12/07/18 09:58 Dose: Not Given Magnesium Hydroxide (Milk Of Magnesia Liq*) 30 ml PO Q6H PRN PRN Reason: CONSTIPATION Metoprolol Tartrate (Lopressor Tab*) 12.5 mg PO BID ON LICENSE OF [facility] Morphine Sulfate (Morphine Inj (Syringe))*) 2 mg IV Q4H PRN PRN Reason: Pain - Unrelieved Multivitamins (Theragran Tab*) 1 tab PO DAILY ON LICENSE OF [facility] Last Admin: 12/07/18 09:55 Dose: 1 tab Ondansetron HCl (Zofran Inj*) 4 mg IV Q6H PRN PRN Reason: NAUSEA Last Admin: 12/06/18 16:20 Dose: 4 mg Ondansetron HCl (Zofran Odt Tab*) 4 mg PO Q6H PRN PRN Reason: NAUSEA Oxycodone HCl (Roxycodone Tab*) 10 mg PO Q4H PRN PRN Reason: Pain - Breakthrough Last Admin: 12/07/18 12:59 Dose: 10 mg Oxycodone/Acetaminophen (Percocet 5/325 Tab*) 1 tab PO Q4H PRN PRN Reason: PAIN - MODERATE Last Admin: 12/07/18 08:41 Dose: 1 tab Oxycodone/Acetaminophen (Percocet 5/325 Tab*) 2 tab PO Q4H PRN PRN Reason: PAIN - SEVERE Pravastatin Sodium (Pravachol (Nf)) [facility] Last Admin: 12/07/18 12:05 Dose: 20 mg Timolol Maleate (Timoptic 0.5% Opth*) 1 drop BOTH EYES DAILY ON LICENSE OF [facility] Last Admin: 12/07/18 12:06 Dose: 1 drp Vital Signs - 8 hr 12/07/18 12/07/18 12/07/18 08:41 08:48 11:43 Temperature 98.8 F Pulse Rate 68 Respiratory 18 18 16 Rate Blood Pressure 108/42 (mmHg) O2 Sat by Pulse 96 Oximetry 12/07/18 12/07/18 12/07/18 12:59 15:18 15:23 Temperature 98.9 F Pulse Rate 76 Respiratory 18 18 16 Rate Blood Pressure 112/51 (mmHg) O2 Sat by Pulse 100 Oximetry Oxygen Devices in Use Now: None Appearance: Pleasant elderly lady sitting up in bed in NAD. Eyes: No Scleral Icterus Ears/Nose/Mouth/Throat: Mucous Membranes Moist Neck: Trachea Midline Respiratory: Symmetrical Chest Expansion and Respiratory Effort, Clear to Auscultation Cardiovascular: RRR - Normal S1 and S2 Extremities: - - CDI to right hip, thigh is soft, no calf tenderness, good capillary refill Neurological: Alert and Oriented x 3, NL Muscle Strength and Tone, - - sensation intact, speech is clear, face is symmetric Result Diagrams: 12/07/18 07:20 12/07/18 07:20 Assess/Plan/Problems-Billing Assessment: Mrs Singh is a 68yo F with PMH of HTN, DJD, hypothyroidism, depression, thoracic aneurysm s/p repair in July 2018 with biological AVR, glaucoma, admitted for elective right total hip arthroplasty. - Patient Problems (1) H/O total hip arthroplasty Comment: - Management as per Ortho. (2) HTN (hypertension) Comment: - Controlled. - Continue Metoprolol. (3) Hypothyroid Comment: - Continue Levothyroxine. (4) Depression Comment: - Continue Bupropion. (5) Aortic aneurysm Comment: - S/p repair with Dacron hemashield and AVR with #23 Magna ease pericardial valve in July 2018. - D/w Cardiology (Dr Ma) - patient should be continued on her low dose Aspirin. (6) DVT prophylaxis Comment: - Apixaban as per Ortho. (7) Full code status Status and Disposition: Hospitalist service will continue to follow with you.
[2018-12-07] MEDS: Metoprolol Tartrate TAB* 25 MG PO SCH (21:20)
[2018-12-08] MEDS: oxyCODONE TAB* 5 MG TAB PO PRN (02:27)
[2018-12-08] MEDS: Levothyroxine TAB* 25 MCG TAB PO SCH (06:15)
[2018-12-08] MEDS: Docusate CAP* 100 MG PO SCH (08:01)
[2018-12-08] MEDS: buPROPion SR TAB.SR* 100 MG PO SCH (08:01)
[2018-12-08] MEDS: CMC: Pravastatin (NF) 20 MG TAB PO SCH (08:01)
[2018-12-08] MEDS: Metoprolol Tartrate TAB* 25 MG PO SCH (08:02)
[2018-12-08] MEDS: Vitamin THERAPEUTIC TAB PO SCH (08:02)
[2018-12-08] MEDS: oxyCODONE/Acetamin 5/325 MG* TAB PO PRN (08:02)
[2018-12-08] MEDS: Apixaban* 2.5 MG TAB PO SCH (08:02)
[2018-12-08] MEDS: Timolol 0.5% OPTH.SOL* BTL BOTH EYES SCH (08:03)
[2018-12-08] MEDS: Latanoprost 0.005%* 2.5 ml BTL BOTH EYES SCH (08:04)
[2018-12-08 08:10] VITALS: BP 116/63
--- NOTE | 2018-12-08 08:19 | PN ---
Progress Note - Progress Note Date of Service: 12/08/18 SOAP: Subjective: Pt is doing well. Pain is controlled. Denies F/C, CP/SOB and calf pain. No BM but pt is passing gas Objective: PE- 68 y/o WDWN F NAD. A&Ox3 RLE- dressing changed, inc c/d/i, calf soft NT, +DF/PF ankle, SILT distally, +2 DP pulse Vital Signs Temp Pulse Resp BP Pulse Ox 97.8 F 84 16 116/63 98 12/08/18 08:09 12/08/18 08:09 12/08/18 08:09 12/08/18 08:09 12/08/18 08:09 Laboratory Results - last 24 hr 12/07/18 07:20 Sodium 139 Potassium 4.2 Chloride 104 Carbon Dioxide 30 Anion Gap 5 BUN 11 Creatinine 0.74 Est GFR ( Amer) 95.0 Est GFR (Non-Af Amer) 78.5 BUN/Creatinine Ratio 14.9 Glucose 103 H Calcium 8.7 Assessment: [POD 2 RTHA ] Plan: [Eliquis x30 days Percocet for pain relief Continue with PT Cont post hip precautions Home with VNS today.
--- NOTE | 2018-12-08 08:38 | DS ---
Date of service: 12/08/18 Date of Admission:12/06/18 Date of Discharge: [12/08/18] Date of Surgery: [12/06/18] Attending Orthopedic Provider: [Dr. Wu] Pre-operative Diagnosis: [Right hip OA] Operative Procedure: [Right total hip arthroplasty] Disposition of Patient: [Home with VNS] Condition of Patient: [Stable] History: CAMDEN GRANT is a 68 year old F with years of increasingly severe right hip pain. Patient has failed conservative management and has elected to undergo a right total hip replacement Hospital Course: CAMDEN was admitted to [facility] on 12/06/18. Patient underwent a right total hip replacement without complication followed by a brief recovery in PACU and transfer to the Short Stay Surgical Unit in stable condition. Our hospitalist service, physical therapy and occupational therapy also participated in this patients care. Post-op day 1: patient was alert and in no acute distress. Dressing was clean, dry and intact. Operative extremity dorsiflexion and plantarflexion intact, sensation intact to light touch distally, DP2+. Post-op day two: dressing was changed, incision was clean , dry and intact. Patient was deemed to be medically and orthopedically stable for discharge. Physical therapy goals were met. Discharge Instructions following Orthopedic Surgery: Activity: * Weight Bearing as tolerated * Continue physical therapy and occupational therapy exercises as shown Hip replacements: Continue Hip Precautions- do not cross legs or bend greater than 90 degrees/squat Wound care: * OK to shower on post-op day 3, no bathing, swimming, or submerging wound. * Use gentle soap, pat dry. Cover with gauze, JO wrap or tape. * Visiting home nurse to do wound checks. Call Orthopedic office for: * Increased drainage * Redness * Increased pain * Fever Go to ER with shortness of breath or chest pain. Diet: * Regular diet * Increase fluids and fiber to prevent constipation. * Continue to use stool softeners, call office if no bowel motion within 48 hours. Medications See Home Medication List in your packet for medications that you should take after discharge. DVT Prophylaxis: Eliquis Dosin.5 mg, 1 tab every 12 hours x 30 days post op Continue low dose aspirin per cardiology Pain Control: Percocet Dosin/325 mg 1-2 tabs by mouth every 4-6 hours as needed for pain. Maximum of 10 tabs per day. Please note that Percocet contains Tylenol (acetaminophen). Maximum daily dose of Tylenol is 4000 mg from all sources. Antibiotics are required prior to any dental work. FOLLOW UP: Follow up with Dr. Wu Within 10-14 days, call for appointment Please call our office with any questions or concerns ([phone]) RX to [facility]
[2018-12-08 08:47] LABS: Hematocrit 30 % (35-47); Hemoglobin 10.1 g/dL (12.0-16.0); Mean Platelet Volume 8.1 fL (7.4-10.4); Platelet Count 156 10^3/uL (150-450)
[2018-12-08] MEDS ORDERED: LATANOPROST BOTH EYES SCH (09:00)
[2018-12-08] MEDS ORDERED: Aspirin EC TAB* 81 MG TAB.EC PO SCH (09:00)
[2018-12-08] MEDS ORDERED: TIMOLOL MALEATE BOTH EYES SCH (09:00)
[2018-12-08] MEDS ORDERED: [UNRECOGNIZED DRUG - OTHER] BOTH EYES SCH (09:00)
[2018-12-08] MEDS ORDERED: Bisacodyl SUPP* 10 MG SUPP PR PRN (14:04)
[2018-12-09] MEDS ORDERED: Scopolamine PATCH Remove* 1 NOTE MISC PATCH OFF ONE (06:04)
== END 2018-12-08 12:05 | disposition home health service (06) | DRG 470 ==
LOC: AA 12-06 07:38 → SSU 12-06 15:46
PROVIDERS: ADMIT Orthopaedic Surgery Adult Reconstructive Orthopaedic Surgery; ATTEND Orthopaedic Surgery Adult Reconstructive Orthopaedic Surgery
PROC: 0SR904A Replacement of Right Hip Joint with Ceramic on Polyethylene Synthetic Substitute, Uncemented, Open Approach (ICD-10-PCS; principal; 2018-12-06 11:00)
DX: M16.11 Unilateral primary osteoarthritis, right hip (principal); Z68.41 Body mass index [BMI] 40.0-44.9, adult; E78.00 Pure hypercholesterolemia, unspecified; I10 Essential (primary) hypertension; E03.9 Hypothyroidism, unspecified; H40.9 Unspecified glaucoma; F32.9 Major depressive disorder, single episode, unspecified; Z96.89 Presence of other specified functional implants; I08.1 Rheumatic disorders of both mitral and tricuspid valves; E66.01 Morbid (severe) obesity due to excess calories; E78.5 Hyperlipidemia, unspecified; Z98.42 Cataract extraction status, left eye; Z83.3 Family history of diabetes mellitus; Z82.3 Family history of stroke; Z90.49 Acquired absence of other specified parts of digestive tract; Z95.2 Presence of prosthetic heart valve; Z98.41 Cataract extraction status, right eye; Z79.82 Long term (current) use of aspirin; Z23 Encounter for immunization
CPT/HCPCS: 36415; 80048; 85014; 85018; 85049; 88304; 88311; 90686; A9270-GY; C1713; C1776; G8978-GP-CI; G8978-GP-CJ; G8979-GP-CI; G8980-GP-CI; G8987-GO-CI; G8988-GO-CI; G8989-GO-CI; J0690; J1170; J2250; J2405; J2704; J2795; J3010; J8540